=== PATIENT | male | born 1995 | race Caucasian/White ===

== ENCOUNTER 2020-12-21 22:16 | Emergency (ER) | payer OTHER ==
[~2020-12-21] VITALS: Ht 172.7 cm; Wt 65.9 kg
[~2020-12-21 22:16] MED LIST: AUGMENTIN 500 M1 TAB PO; NO HOME MEDICATIONS
[2020-12-21 22:26] VITALS: TEMP 97.7
[2020-12-21 23:49] LABS: BASO # 0.1 (0.0-0.2); BASO % 0.6 % (0.0-2.0); EOS # 0.1 (0.0-0.7); EOS % 0.6 % (0-4.0); GRAN # 8.2 (1.4-6.5); GRAN % 64.6 % (42.2-75.2); HEMATOCRIT 47.1 % (42.0-52.0); LYMPH # 3.2 (1.2-3.4); LYMPH % 25.2 % (20.0-51.0); MEAN CELL VOLUME 89 fl (80.0-100.0); MEAN CORPUSCULAR HEMOGLOBIN 30 pg (27.0-31.0); MEAN CORPUSCULAR HGB CONC 34 g/dl (33.0-37.0); MONO # 1.1 (0.1-0.6); MONO % 8.6 % (1.7-9.3); PLATELET COUNT 478 K/mm3 (130-400); REDCELL DISTRIBUTION WIDTH-CV 13.8 % (11.5-14.5)
[2020-12-22 00:04] LABS: ALBUMIN 4.8 gm/dL (3.5-5.0); CALCIUM 9.8 mg/dL (8.4-10.2); CREATININE, serum 0.65 (0.66-1.25); POTASSIUM 3.6 mmol/L (3.4-5.0); TOTAL PROTEIN 8.7 gm/dL (6.4-8.2)
[2020-12-22 03:09] VITALS: BP 122/73; PULSE 91
== END 2020-12-22 03:09 | disposition home or self-care (01) ==
LOC: COL.ER 22:16
PROVIDERS: Emergency Medicine
DX: T40.1X2A Poisoning by heroin, intentional self-harm, initial encounter (principal); F17.210 Nicotine dependence, cigarettes, uncomplicated